=== PATIENT | male | born 1950 | race Caucasian/White ===

== ENCOUNTER 2016-07-01 05:01 | Day surgery (SDC) | payer OTHER, BC ==
--- NOTE | 2016-06-06 10:02 | PAT Medication Instructions ---
Service Date Jun 06, 2016. Current Home Medication List Aspirin (Aspirin Ec), 81 MG PO QAM Carvedilol (Coreg), 12.5 MG PO BID Choline Fenofibrate (Trilipix), 1 CAP PO QAM Metformin Hcl (Glucophage), 1,000 MG PO BID Simvastatin (Zocor), 20 MG PO QPM Topiramate (Topamax), 50 MG PO BID Zolpidem Tartrate (Ambien), 5 MG PO HS Medication Instructions For Your Scheduled Surgery - Hold the following medications 48 hours prior to surgery: Metformin Hcl (Glucophage), 1,000 MG PO BID - Hold the following medications day prior to and morning of surgery: Choline Fenofibrate (Trilipix), 1 CAP PO QAM (last dose will be on 06/22/16) - Take the following medications the morning of surgery with a sip of water: Carvedilol (Coreg), 12.5 MG PO BID Aspirin (Aspirin Ec), 81 MG PO QAM - Take the following medications as scheduled the night before surgery: Zolpidem Tartrate (Ambien), 5 MG PO HS Topiramate (Topamax), 50 MG PO BID (usually takes only in evening) Simvastatin (Zocor), 20 MG PO QPM Carvedilol (Coreg), 12.5 MG PO BID If you have any questions please call us at [phone] or [phone] ( Frances) or [phone]
--- NOTE | 2016-06-06 10:38 | DIAGNOSTIC IMAGING REPORT ---
CHEST PREADMISSION(PA/LAT) CLINICAL HISTORY: Preoperative chest COMPARISON STUDY: No previous studies for comparison. FINDINGS: The cardiac and mediastinal contours are normal. There is no evidence of focal pulmonary consolidation. There is no evidence of failure. No pleural effusions are visualized.[ IMPRESSION: No active disease in the chest. Electronically signed by: Eldon Diaz M.D. 06/06/2016 10:36 AM
[2016-06-06 11:31] LABS: BASO % 0.5 %; BASO ABS # 0.03 K/uL (0-0.2); COMPLETE YES; EOS % 4.3 %; IG% 0.3 %; LYMPH % 26.1 %; LYMPH ABS # 1.57 K/uL (1.2-3.4); MEAN CELL VOLUME 81.5 fL (80-100); MEAN CORPUSCULAR HEMOGLOBIN 26.7 pg (25-34); MEAN CORPUSCULAR HGB CONC 32.7 g/dl (32-36); MEAN PLATELET VOLUME 10.9 fL (7.4-10.4); MONO % 8.5 %; NEUT % 60.3 %; PLATELET COUNT 303 K/uL (130-400); RED BLOOD COUNT 4.05 M/uL (4.7-6.1); WHITE BLOOD COUNT 6.02 K/uL (4.8-10.8)
[2016-06-06 11:41] LABS: PROTHROMBIN TIME (PATIENT) 10.7 SECONDS (9.0-12.0)
[2016-06-06 14:09] LABS: CALCIUM 9.5 mg/dl (8.5-10.1); CREATININE 1.8 mg/dl (0.60-1.40)
[2016-06-06 14:15] LABS: BUN/CREATININE RATIO 19.6 (10-20)
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
[~2016-07-01] VITALS: Ht 170.2 cm; Wt 84.0 kg
[~2016-07-01 05:01] MED LIST: ACETAMINOPHEN 500 MG TAB PO SCH; ASPI81TA28 PO; CARV12.5 PO; CEFAZOLIN 2000 MG/60 ML D5W 60 ML IV SCH; CHOL135C6 PO; FAMOTIDINE 20 MG TAB PO SCH; GABAPENTIN 300 MG CAP PO SCH; LACTATED RINGER'S 1000ML IV SCH; METF-384 PO; SIMV20TA2 PO; TOPI50TA16 PO; ZOLP5TAB PO
[2016-07-01] MEDS ORDERED: SITA50TA3 PO (05:45)
[2016-07-01 05:52] VITALS: BP 144/76; PULSE 72; TEMP 36.8; O2SAT 98; Ht 170.2 cm; Wt 84.0 kg
[2016-07-01] MEDS ORDERED: CEFAZOLIN 2000 MG/60 ML D5W 60 ML IV SCH (06:00)
[2016-07-01] MEDS ORDERED: ACETAMINOPHEN 500 MG TAB PO SCH (06:00)
[2016-07-01] MEDS ORDERED: GABAPENTIN 300 MG CAP PO SCH (06:00)
[2016-07-01] MEDS ORDERED: LACTATED RINGER'S 1000ML IV SCH (06:00)
[2016-07-01] MEDS ORDERED: FAMOTIDINE 20 MG TAB PO SCH (06:00)
[2016-07-01] MEDS ORDERED: DEXAMETHASONE SOD INJ 4 MG/ML VIAL ONE ×2 (06:20→06:40)
[2016-07-01] MEDS ORDERED: BUPIVACAINE 0.5 % 5 MG/1 ML PF 10ML VIAL ONE (06:20)
--- NOTE | 2016-07-01 06:30 | History & Physical Bridge Note ---
H&P Re-Evaluation Bridge Note: I have examined the patient, reviewed the History & Physical and in the interval since the performance of the History & Physical I have noted the following changes of clinical significance: No changes noted
[2016-07-01] MEDS ORDERED: LIDOCAINE HCL 2% 2 ML VIAL (20MG/ML) ONE (06:40)
[2016-07-01] MEDS ORDERED: ONDANSETRON INJ 2 MG/ML 2 ML VIAL ONE (06:40)
[2016-07-01] MEDS ORDERED: MIDAZOLAM HCL 1 MG/ML 2ML VIAL ONE (06:40)
[2016-07-01] MEDS ORDERED: FENTANYL CITRATE INJ 50 MCG/1 ML 2 ML VIAL ONE (06:40)
[2016-07-01] MEDS ORDERED: PROPOFOL IV EMULSION 10 MG/ML 20 ML VIAL IV ONE (06:40)
[2016-07-01] MEDS ORDERED: EpHEDrine SULFATE INJ 50 MG/ML AMP ONE (07:33)
[2016-07-01] MEDS ORDERED: PHENYLEPHRINE HCL INJ 10 MG/ML VIAL ONE (07:33)
[2016-07-01] MEDS ORDERED: PHENYLEPHRINE 100MCG/ML 5ML SYR ONE (07:33)
[2016-07-01] MEDS ORDERED: EpHEDrine SULFATE 50MG/5ML SYR ONE (07:33)
[2016-07-01] MEDS ORDERED: METHYLPREDNISOLONE ACETATE 80 MG/ML VIAL ONE (07:34)
[2016-07-01] MEDS ORDERED: BUPIVACAINE/EPINEPHRINE 0.5% MPF 1:200,000 30 ML VIAL INJ ONE (07:52)
[2016-07-01] MEDS ORDERED: METHYLPREDNISOLONE (DEPO-MEDROL) 80MG INJ ONE (07:54)
[2016-07-01] MEDS ORDERED: KETO10TA PO (08:08)
[2016-07-01] MEDS ORDERED: OXYC-57 PO (08:08)
[2016-07-01] MEDS ORDERED: SODIUM CHLORIDE 0.9% 1000ML 1,000 ML IV SCH (08:10)
--- NOTE | 2016-07-01 08:10 | Discharge Instructions ---
Discharge Instructions Admission Reason for Admission: Left Shoulder Joint Pain, Adhesive Capsulitis Of S Discharge Discharge Diagnosis / Problem: SAME ABOVE Discharge Goals Goal(s): Decrease discomfort, Improve function Activity Recommendations Activity Limitations: as noted below Lifting Limitations: gradually increase as tolerated Exercise/Sports Limitations: gradually increase as tolerated Shower/Bathe: tomorrow Driving or Machine Use: WHEN OUT OF THE SLING AND OFF OF PAIN MEDICATION . Instructions / Follow-Up Instructions / Follow-Up MEDICATIONS: * Resume previous medications unless instructed otherwise by your surgeon. * Always take pain medication on a full stomach or with food to avoid upset stomach. * Do not drink alcohol or drive while taking narcotics. * Ibuprofen or Tylenol may be taken if narcotic not needed. SPECIAL CARE INSTRUCTIONS: __ None _X_ Keep extremity elevated and iced x 48 hours; apply ice 20-30 minutes 8-10 times/day. May remove at night. _X_ Sling (WEAR NEEDED FOR COMFORT) __24 hrs/day __ Remove at night __ Shoulder Immobilizer __ 24 hrs/day __ Remove at night _X_ Dressing __ Maintain until seen in office, may shower with plastic over site _X_ Remove dressings in 24-48 hours and then may shower _X_ Cover incisions with band-aids after showering __ Do not remove steri-strips Call physician if chills or temperature rises above 102 degrees or pain unrelieved by prescribed pain medications at . . Current Hospital Diet Patient's current hospital diet: Discharge Diet Recommended Diet: Regular Diet Fluid Restriction: None Procedures Procedures Performed: Left Shoulder Arthroscopy decompression, distal clavicle resection, biceps tenotomy, lysis of adhesions Pending Studies Studies pending at discharge: no Work Instructions Return To Work: after follow-up Medical Emergencies . Who to Call and When: Medical Emergencies: If at any time you feel your situation is an emergency, please call 911 immediately. . Non-Emergent Contact Non-Emergency issues call your: Primary Care Provider Call Non-Emergent contact if: you have a fever, temperature is above 101.5 . "Provider Documentation" section prepared by Duane Lombardi. VTE Core Measure Inpt VTE Proph given/why not?: Treatment not indicated
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
[2016-07-01] MEDS ORDERED: ONDANSETRON INJ 2 MG/ML 2 ML VIAL IV PRN ×2 (08:15→08:30)
[2016-07-01] MEDS ORDERED: OXYCODONE/ACETAMINOPHEN 5-325 TAB PO PRN ×2 (08:15)
[2016-07-01] MEDS ORDERED: LACTATED RINGER'S 1000ML 1,000 ML IV PRN (08:19)
[2016-07-01] MEDS ORDERED: NovoLIN-R INSULIN PER UNIT CHARGE ONE (08:21)
[2016-07-01] MEDS ORDERED: INSULIN HUMAN REGULAR SC ONE (08:30)
[2016-07-01] MEDS ORDERED: FENTANYL CITRATE INJ 50 MCG/1 ML 2 ML VIAL IV PRN (08:30)
[2016-07-01 08:50] VITALS: BP 154/80; PULSE 64; TEMP 36.4; O2SAT 97
[2016-07-01 09:20] VITALS: BP 154/88; PULSE 67; TEMP 36.5; O2SAT 97
--- NOTE | 2016-07-01 09:35 | Anesthesiology Progress Note ---
Anesthesia Post Op Note Date & Time Jul 01, 2016 at 09:35 Vital Signs Pain Intensity: 0 Vital Signs Past 12 Hours Date Time Temp Pulse Resp B/P Pulse Ox O2 Delivery O2 Flow Rate FiO2 07/01/16 08:50 36.4 64 18 154/80 97 Room Air 07/01/16 08:45 66 14 165/88 97 Room Air 07/01/16 08:35 36.1 69 17 160/89 98 Room Air 07/01/16 08:25 68 16 162/94 100 Mask 10 07/01/16 08:15 65 16 159/88 100 Mask 10 07/01/16 08:07 36.2 70 16 154/87 100 Mask 10 07/01/16 05:52 36.8 72 18 144/76 98 Room Air Notes Mental Status: alert / awake / arousable, participated in evaluation Pt Amnestic to Procedure: Yes Nausea / Vomiting: adequately controlled Pain: adequately controlled Airway Patency, RR, SpO2: stable & adequate BP & HR: stable & adequate Hydration State: stable & adequate Anesthetic Complications: no major complications apparent
[2016-07-01 09:50] VITALS: BP 156/83; PULSE 71; TEMP 36.3; O2SAT 97
--- NOTE | 2016-07-01 10:16 | [facility] Post Operative Brief Note ---
Immediate Operative Summary Operative Date Jul 01, 2016. Pre-Operative Diagnosis Adhesive capsulitis of left shoulder Post-Operative Diagnosis same as preoperative Procedure(s) Performed Left Shoulder Arthroscopy decompression, distal clavicle resection, biceps tenotomy, lysis of adhesions Surgeon Dr. Kaur Diesel Inspector Surgeon(s) Duane Lombardi PA-C Estimated Blood Loss 2ml Findings as above Specimens none Complication(s) None Disposition Recovery Room / PACU
== END 2016-07-01 10:30 | disposition home or self-care (01) ==
LOC: C.ACU 05:01
PROVIDERS: ATTEND Orthopaedic Surgery
DX: M75.02 Adhesive capsulitis of left shoulder (principal); M75.42 Impingement syndrome of left shoulder; I10 Essential (primary) hypertension; I25.10 Atherosclerotic heart disease of native coronary artery without angina pectoris; I25.2 Old myocardial infarction; E11.9 Type 2 diabetes mellitus without complications; Z68.30 Body mass index [BMI] 30.0-30.9, adult; Z87.891 Personal history of nicotine dependence; M19.90 Unspecified osteoarthritis, unspecified site; E66.9 Obesity, unspecified